=== PATIENT | female | born 1955 ===

== ENCOUNTER 2018-07-03 21:52 | Emergency (ER) | payer OTHER ==
[2018-07-03 22:04] VITALS: O2SAT 100
--- NOTE | 2018-07-03 22:30 | ED PDOC ---
HPI: Abdomen Time Seen by Provider: 07/03/18 22:10 Chief Complaint (Nursing): Chest Pain Chief Complaint (Provider): abdominal pain History Per: Patient History/Exam Limitations: no limitations Onset/Duration Of Symptoms: Days (1) Current Symptoms Are (Timing): Still Present Location Of Pain/Discomfort: Epigastric Additional Complaint(s): 62 y/o female history of hypertension presents for evaluation of upper abdominal pain x 1 day. Patient states she slept on her stomach last night and when she woke up she noticed upper abdominal pain radiating up to center of chest and throat. Denies fever, nausea/vomiting, shortness of breath, palpitations, changes in bowel movements, urinary symptoms, leg pain/swelling. Past Medical History Reviewed: Historical Data, Nursing Documentation, Vital Signs Vital Signs: Last Vital Signs Temp 97.5 F L 07/03/18 22:02 Pulse 85 07/03/18 22:02 Resp 16 07/03/18 22:02 BP 141/76 07/03/18 22:02 Pulse Ox 100 07/03/18 22:02 - Medical History PMH: HTN - Surgical History Surgical History: Appendectomy - Family History Family History: States: Unknown Family Hx - Home Medications Home Medications: Ambulatory Orders Medication Instructions Recorded Tizanidine Hydrochloride 4 mg PO Q6 PRN #20 tab 07/20/14 [Tizanidine HCl] traMADol [Ultram] 50 mg PO QID PRN #20 tab 07/20/14 Amoxicillin/Clavulanate [Augmentin 1 tab PO BID #20 tab 05/05/16 875 MG-125 MG] Prednisone 50 mg PO DAILY #4 tablet 05/05/16 Sulfamethoxazole/Trimethoprim 1 tab PO BID #14 tab 05/05/16 [Bactrim DS 800 mg-160 mg] DiphenhydrAMINE [Benadryl] 25 mg PO Q4 PRN #30 cap 06/13/16 Famotidine [Pepcid] 40 mg PO DAILY PRN #30 tab 06/13/16 Prednisone 50 mg PO DAILY #4 tablet 06/13/16 Famotidine [Pepcid] 20 mg PO BID #20 tab 07/04/18 - Allergies Allergies/Adverse Reactions: Allergies Allergy/AdvReac Type Severity Reaction Status Date / Time No Known Allergies Allergy Verified 07/03/18 22:00 Review of Systems ROS Statement: Except As Marked, All Systems Reviewed And Found Negative Cardiovascular: Positive for: Chest Pain Gastrointestinal: Positive for: Abdominal Pain Physical Exam - Reviewed Nursing Documentation Reviewed: Yes Vital Signs Reviewed: Yes - Physical Exam Appears: Positive for: Well, Non-toxic, No Acute Distress Head Exam: Positive for: ATRAUMATIC, NORMAL INSPECTION, NORMOCEPHALIC Skin: Positive for: Normal Color Eye Exam: Positive for: Normal appearance ENT: Positive for: Normal ENT Inspection Cardiovascular/Chest: Positive for: Regular Rate, Rhythm Respiratory: Positive for: Normal Breath Sounds Gastrointestinal/Abdominal: Positive for: Bowel Sounds, Soft, Tenderness (epigastric) Back: Positive for: Normal Inspection Extremity: Positive for: Normal ROM Neurologic/Psych: Positive for: Alert, Oriented (x3) - Laboratory Results Result Diagrams: 07/03/18 22:25 07/03/18 22:25 - ECG ECG: Positive for: Viewed By Me (reviewed by ED attending) ECG Rhythm: Positive for: Sinus Rhythm O2 Sat by Pulse Oximetry: 100 - Radiology X-Ray: Viewed By Me X-Ray Interpretation: No Acute Disease - Progress ED Course And Treament: -cbc -cmp -troponin -lipase -ekg -cxr -hall monitor -IV pepcid EXAM: US Abdomen, Right Upper Quadrant. CLINICAL HISTORY: Chest and epigastric pain TECHNIQUE: Right upper quadrant sonography performed with image documentation. COMPARISON: None provided. FINDINGS: LIVER: Within normal limits in size and echogenicity. No mass. GALLBLADDER: The gallbladder appears within normal limits. No gallbladder wall thickening or pericholecystic fluid. COMMON BILE DUCT: Within normal limits in size. 3 mm. PANCREAS: The distal pancreas is obscured by bowel gas. The visualized portion of the pancreas appears within normal limits. RIGHT KIDNEY: Unremarkable. Normal renal contours. No renal mass or calculus. No hydronephrosis. IMPRESSION: Unremarkable right upper quadrant ultrasound Case discussed with ED attending Dr. Chairez; HEART score 3 (low risk). Will get 2nd trop 2nd trop negative. Patient resting comfortably on re-eval; states pain improved Patient educated on findings, discharged with rx Pepcid Advised follow up with primary doctor within 2-3 days Diet modification Return precautions given Disposition - Clinical Impression Clinical Impression: Epigastric abdominal pain, Midsternal chest pain - Patient ED Disposition Is Patient to be Admitted: No Counseled Patient/Family Regarding: Studies Performed, Diagnosis, Need For F ollowup, Rx Given - Disposition Disposition: Routine/Home Disposition Time: 03:02 Condition: IMPROVED Prescriptions: Famotidine [Pepcid] 20 mg PO BID #20 tab Instructions: Chest Pain, Acute Abdomen (Belly Pain) Forms: [employer]et (Yi) Print Language: SLOVAK
[2018-07-03 22:41] LABS: BASO # 0.2 K/uL (0.0-0.2); BASO % 1.4 % (0.0-2.0); EOS # 0.1 K/uL (0.0-0.7); EOS % 0.8 % (0.0-4.0); HEMOGLOBIN 12.9 g/dL (12.0-16.0); LYMPH # 3.8 K/uL (1.0-4.3); LYMPH % 26.7 % (20.0-40.0); MEAN CELL VOLUME 99.8 fl (81.0-99.0); MEAN CORPUSCULAR HEMOGLOBIN 32.7 pg (27.0-31.0); MEAN CORPUSCULAR HGB CONC 32.8 g/dL (33.0-37.0); MEAN PLATELET VOLUME 8.2 fl (7.2-11.7); MONO # 0.8 K/uL (0.0-0.8); MONO % 5.9 % (0.0-10.0); NEUT # 9.3 K/uL (1.8-7.0); NEUT % 65.2 % (50.0-75.0); RBC 3.93 Mil/uL (3.80-5.20); RED CELL DISTRIBUTION WIDTH 12.9 % (11.5-14.5); WHITE BLOOD COUNT 14.2 K/uL (4.8-10.8)
[2018-07-03 22:56] LABS: ALB/GLOB RATIO 1.2 (1.0-2.1); ALBUMIN 4.4 g/dL (3.5-5.0); BLOOD UREA NITROGEN 12 mg/dl (7-17); CALCIUM 9.1 mg/dL (8.4-10.2); GFR NON-AFRICAN AMERICAN > 60; LIPASE 169 U/L (23-300)
[2018-07-03 23:03] LABS: ALT/SGPT 33 U/L (9-52); AST/SGOT 34 U/L (14-36)
[2018-07-04] MEDS ORDERED: Atrop/Hyos/Scop/PhenoB Elixir PO STA (00:33)
[2018-07-04] MEDS ORDERED: Alum-Mag Hydrox-Simethicone Susp (30 mL) PO STA (00:33)
[2018-07-04] MEDS ORDERED: Alum-Mag Hydrox-Simethicone Susp (30 mL) ONE (00:46)
[2018-07-04 02:34] VITALS: PULSE 70
[2018-07-04 03:22] VITALS: BP 126/70; RESP 20; TEMP 98
--- NOTE | 2018-07-04 07:30 | US ---
Date of service: 07/03/2018 HISTORY: abd pain COMPARISON: None available. TECHNIQUE: Sonographic evaluation of the abdomen. FINDINGS: LIVER: Liver is heterogeneous in echogenicity. This limits evaluation for small masses. No focal large liver mass is identified. No intrahepatic biliary ductal dilatation is identified. Portal vein is patent with normal hepatopetal flow. GALLBLADDER: The gallbladder is physiologically distended. No gallstones, gallbladder wall thickening, or pericholecystic fluid is identified. COMMON BILE DUCT: Normal in caliber measuring 0.3 cm. PANCREAS: The visualized portions are unremarkable in echogenicity. The remainder of the pancreas is obscured by bowel gas. RIGHT KIDNEY: Measures 9.1cm. Unremarkable in echogenicity. No shadowing renal stone, cyst, or hydronephrosis is identified AORTA: No aneurysmal dilatation of the visualized portions. IVC: Visualized portions are unremarkable.. OTHER FINDINGS: None. IMPRESSION: Heterogeneous liver. Preliminary impression was provided by the Teleradiology service. Major findings are concordant.
--- NOTE | 2018-07-04 07:39 | RAD ---
Date of service: 07/03/2018 HISTORY: chest pain COMPARISON: Chest x-ray 05/05/2016 TECHNIQUE: Chest PA and lateral FINDINGS: LUNGS: No focal consolidation is seen. Stable area of scarring in the right upper lobe and biapical pleural thickening. Stable small granuloma left mid lung field. PLEURA: No pleural effusion is identified. CARDIOVASCULAR: Heart size is within normal limits. No atherosclerotic calcification present. OSSEOUS STRUCTURES: No acute fracture identified. VISUALIZED UPPER ABDOMEN: Unremarkable. OTHER FINDINGS: None. IMPRESSION: No focal consolidation is seen. Stable area of scarring in the right upper lobe and biapical pleural thickening.
== END 2018-07-04 03:05 | disposition home or self-care (01) ==
LOC: H.ER 21:52
DX: R10.13 Epigastric pain (principal); R07.9 Chest pain, unspecified; I10 Essential (primary) hypertension